=== PATIENT | female | born 1950 | race Caucasian/White ===

== ENCOUNTER 2016-10-11 03:02 | Emergency (ER) | payer OTHER ==
--- NOTE | ~2016-10-11 | ER ---
PATIENT'S NAME: [facility] AGE: 65 Y [address] ROOM: [place] [address] LOCATION: [facility] ADMIT DATE: 10/11/2016 ER/Outpatient Report DISCHARGE DATE: 10/11/2016 FAMILY PHYSICIAN: Sánchez Delaney MD ATTENDING PHYSICIAN: Malia Wilhelm Admission date and time are documented on the medical record. I saw the patient at 0310 hours. CHIEF COMPLAINT: Epigastric discomfort with near syncopal episode. HISTORY OF PRESENT ILLNESS: This patient is a 65-year-old female who starting this past Sunday has not felt quite 100%. She has some fullness discomfort in her epigastric area of her abdomen and tonight had a near syncopal episode. The fullness in her abdomen comes and goes. No real chest pain or shortness of breath. Lightheaded, dizzy, with near syncope, but no true syncope. No fall or trauma. No headache, eyes, ears, nose, throat, neck, or spine pain. No recent coughs, colds, flus, fevers, chills, or sweats. Thought that with her epigastric discomfort that she may be coming down with a flu bug. Lost her appetite and was drinking very well, which may contribute to the near syncope episodes. No urinary symptoms, no diarrhea, in fact she has been little bit constipated with no bowel movement since Sunday. No joint or muscle swelling, redness, or pain. No skin eruptions or rash. No history of endocrine problems, neuro changes, or psych issues. HOME MEDICATIONS: See attached medication list. ALLERGIES: ERYTHROMYCIN. SOCIAL HISTORY: Nonsmoker. Does drink alcohol. SIGNIFICANT PAST MEDICAL HISTORY: Paroxysmal atrial fibrillation, dyslipidemia. OPERATIONS: None. REVIEW OF SYSTEMS: All systems reviewed by me are negative with the exception of those discussed in the history of the present illness. PATIENT'S NAME: [facility] AGE: 65 Y [address] ROOM: [place] [address] LOCATION: [facility] ADMIT DATE: 10/11/2016 ER/Outpatient Report DISCHARGE DATE: 10/11/2016 FAMILY PHYSICIAN: Sánchez Delaney MD ATTENDING PHYSICIAN: Malia Wilhelm PHYSICAL EXAMINATION: VITAL SIGNS: Temperature 96.9, tympanic, pulse 55, regular, respirations 16, blood pressure 139/65, and O2 sat on room air is 97%. HEENT: Head: Normocephalic. EYES, EARS, NOSE, AND THROAT: Clear. Mucous membranes moist. NECK: No nuchal rigidity. No thyromegaly or cervical adenopathy. No tenderness. SPINE: Nontender. No deformity. LUNGS: Clear. Good airflow. No rales, rhonchi, or wheezes. HEART: Regular. The patient is bradycardic. Pulses are palpable. No chest wall or ribcage pain to palpation. ABDOMEN: Soft. Some tenderness in the epigastric area. No palpable masses. No organomegaly. No CVA tenderness. EXTREMITIES: Without peripheral edema, cyanosis, or deformity. NEUROVASCULAR: Intact. SKIN: Clear. LABORATORY DATA: EKG shows sinus bradycardia, no acute ST-elevation, ischemic changes. Chest x- ray showed no acute infiltrate or changes. We will review x-ray with the radiologist. Laboratory: Lactate was 1.0, procalcitonin was 0.08, white count was 5500, 74 segs, 12 lymphs, 13 monos, 2 eos, hemoglobin was 13.7, hematocrit 40.7, and platelet count 147,000. PTT was 41, pro-time was 15 with an INR of 1.4. D-dimer was 0.30. CRP was 1.01, CK-MB was 0.6, troponin was less than 0.04. TSH was 6.76. CMS was normal except for a slightly elevated sodium 146, elevated chloride 113, low anion gap of 9.9, elevated glucose 103, low calcium of 7.8, magnesium was 1.9. Amylase and lipase were normal. CPK was normal at 56. I did do a CT scan of the chest with IV contrast that showed no evidence of aneurysm or dissection. She did have a right upper lobe pulmonary nodule and a left lower lobe pulmonary nodule. No other mediastinal changes. No evidence of central pulmonary embolism. CT scan was read by Radiology, see dictated transcribed report. IMPRESSION: 1. Epigastric fullness, discomfort, etiology uncertain, may be a viral enteritis. No evidence of cardiac or respiratory abnormality on x-ray studies or laboratory studies. 2. Pulmonary nodules, most likely benign. 3. Paroxysmal atrial fibrillation. 4. Dyslipidemia. PLAN: The patient was given IV normal saline fluids and hydrated. She was given a GI cocktail with improvement. Dismissed home. Observation. Activity as PATIENT'S NAME: [facility] AGE: 65 Y [address] ROOM: [place], [place] [address] LOCATION: ED ADMIT DATE: 10/11/2016 ER/Outpatient Report DISCHARGE DATE: 10/11/2016 FAMILY PHYSICIAN: Sánchez Delaney MD ATTENDING PHYSICIAN: Malia Wilhelm tolerated. Continue present home medications and care. Good fluid intake. Good hydration. Balanced diet. Continue present home medications and care. Probably should have a repeat CT scan in the next 12 to 24 months to reevaluate her pulmonary nodules. Follow up with personal physician in 7 to 10 days for followup exam. Discussion ensued with the patient concerning my findings and recommendations, she understands. MALIA WILHELM MD SDS/modl /[id number] d: 10/11/16617 t: 10/11/161810, OUTPATIENT REPORT
[2016-10-11 03:44] LABS: BASOPHIL % 0.2 %; EOSINOPHIL # 0.1 K/uL (0.0-0.5); EOSINOPHIL % 1.5 %; HEMATOCRIT 40.7 % (33.0-46.0); HEMOGLOBIN 13.7 g/dL (10.0-15.0); IMMATURE GRANULOCYTE % 0.2 %; LYMPHOCYTE # 0.7 K/uL (0.8-4.0); LYMPHOCYTE % 12.1 %; MCH 29.7 pg (27.0-34.0); MCHC 33.7 gm/dL (32.0-36.5); MCV 88.3 fl (83.0-98.0); MONOCYTE # 0.7 K/uL (0.0-1.0); MONOCYTE % 12.5 %; MPV 11.4 fl (9.4-12.4); NEUTROPHIL % 73.5 %; NRBC % 0 /100WBC (0-0.00); PLATELET COUNT 147 K/uL (150-450); RBC 4.61 M/uL (3.50-5.50); RDW-CV 13.2 % (11.9-14.6); WBC 5.5 K/uL (4.0-11.0)
[2016-10-11 04:06] LABS: INR - (THERAPEUTIC) 1.4 (0.9-1.1); PTT 41 SECONDS (25-32)
[2016-10-11 04:14] LABS: ALBUMIN 3.2 gm/dL (3.5-5.0); ALK PHOS 78 IU/L (33-138); ALT 39 IU/L (12-78); AST 36 IU/L (10-40); BLOOD UREA NITROGEN 16 mg/dL (6-24); CALCIUM 7.8 mg/dL (8.5-10.5); CHLORIDE 113 mMol/L (96-110); CO2 27 mMol/L (22-32); CPK 56 IU/L (21-215); CREATININE 0.9 mg/dL (0.5-1.1); ESTIMATED GFR (MDRD EQUATION) > 60; MAGNESIUM 1.9 mg/dL (1.3-2.6); POTASSIUM 3.9 mMol/L (3.7-5.1); TOTAL BILIRUBIN 0.4 mg/dL (0.0-1.5); TOTAL PROTEIN 6.2 g/dL (6.0-8.4)
[2016-10-11 04:16] LABS: ANION GAP 9.9 (10.0-19.0); SODIUM 146 mMol/L (135-145)
== END 2016-10-11 05:42 | disposition disaster alternative care site (69) ==
LOC: GMED 03:02
PROVIDERS: Emergency Medicine
DX: R10.13 Epigastric pain (principal); R91.8 Other nonspecific abnormal finding of lung field; I48.0 Paroxysmal atrial fibrillation; E78.5 Hyperlipidemia, unspecified; Z88.1 Allergy status to other antibiotic agents; Z79.01 Long term (current) use of anticoagulants; Z79.899 Other long term (current) drug therapy
CPT/HCPCS: J7030; Q9967

== ENCOUNTER → 2016-12-08 | Outpatient (CLI) | payer OTHER ==
--- NOTE | ~2016-12-08 | ESTC ---
Cardiac Perfusion Imaging Demographics Patient Name JACQUES Franco Gender Female Patient Number [id number] Race Visit Number [id number] Ethnicity [employer] ID Room Number Accession Number [id number] Height 62 inches Date of 1950 Weight 195 pounds Interpreting Mikey Couch Date of study 12/08/2016 Physician MD Supervising MD/ESEQUIELP Alex Marsh APRN NM Technologist Georgi Mcwilliams Ordering Physician Stress software support technician Stress ECG Reading Alex Marsh APRN Nurse Chantale Galeas Physician RN The procedure was explained in detail to the patient. Risks, complications and alternative treatments were reviewed. Written consent was obtained. Medications Reviewed with Patient prior to Procedure. Procedure Procedure Type: Nuclear Stress Test:Pharmacological, Cardiolite Stress Test Procedure Start time: 12/08/2016 08:20 Indications: Chest tightness. Risk Factors The patient risk factors include:treated hypercholesterolemia, family history of premature CAD and dyslipidemia. Conclusions Summary Perfusion Images: The overall quality of the study is good. Left ventricular cavity is noted to be normal on the stress and normal on the rest images. There is no evidence of abnormal lung activity. The right ventricle is not visualized an cannot be assessed. Impression ECG portion of lexiscan stress test is clinically negative for ischemia by diagnostic criteria. Walked for 8.5 minutes on treadmill - attained HR of 120 BPM and unable to keep up with speed/incline of treadmill so test was terminated and switched to lexiscan. Myocardial perfusion imaging is normal. Overall left ventricular systolic function was normal without regional wall motion abnormalities. Calculated LVEF is 71% and TID ratio is 1.11. There are no previous studies for comparison. Stress Protocols Resting ECG Sinus bradycardia. Pre-stress physical exam: Patient assessed by Romeo HORVATH prior to testing. Chest - CTA Cardio - RRR, S1, S2 Stress Protocol:Pharmacologic Predicted HR: 157 bpm HR response: Appropriate BP response: Appropriate Reason for termination:Infusion complete ECG Findings No ECG changes suggestive of ischemia. Arrhythmias No rhythm abnormality. Symptoms Shortness of breath. Complications Procedure complication: None. Stress Interpretation Walked for 8.5 minutes on treadmill - attained HR of 120 BPM and unable to maintain treadmill requirements. Treadmill stopped and switched to juan. Appropriate hemodynamic response to exercise. No significant ST-T wave changes with exercise. EKG portion is negative for ischemia by diagnostic criteria. Appropriate hemodynamic response to Lexiscan. No significant ST-T wave changes with Lexiscan. ECG portion is negative for ischemia by diagnostic criteria. Appropriate hemodynamic response to Lexiscan. No significant ST-T wave changes with Lexiscan. ECG portion is negative for ischemia by diagnostic criteria. Will correlate with nuclear images. Imaging Results Applied corrections - Motion correction applied High risk findings Summed scores - Summed stress score: 9 - Summed rest score: 4 - Summed difference score: 5 Stress ejection Ejection fraction:71 % EDV :123 ml ESV :36 ml Stroke volume :87 ml LV mass :147 gr Imaging Protocols Rest Stress Isotope:Tc99m Sestamibi IV Isotope: Tc99m Sestamibi IV Isotope dose:13.6 mCi Isotope dose:40.3 mCi Date:12/08/2016 07:05 Date:12/08/2016 09:07 Technique: SPECT Technique: Gated Supine SPECT Supine Scan Time:45-60 minutes post Scan Time:45-60 minutes post injection injection Procedure Medications - Regadenoson (Lexiscan) 0.4 mg IV over 10-15 sec. I.V. 0.4 mg. Medical History Admission Data Admission date: 12/08/2016 Admission Time: 06:29 Hospital Status: Outpatient. Signatures dtt: IZA MCLEAN dtd: 12/08/16 0820 Physician Self Edit
== END | disposition disaster alternative care site (69) ==
LOC: GRAD 06:29
DX: R07.9 Chest pain, unspecified (principal); E78.00 Pure hypercholesterolemia, unspecified; E78.5 Hyperlipidemia, unspecified; Z82.49 Family history of ischemic heart disease and other diseases of the circulatory system
CPT/HCPCS: A9500; J2785